=== PATIENT | male | born 1960 | race African-American/Black ===

== ENCOUNTER 2018-09-19 13:09 | Inpatient (IN) | payer OTHER ==
[2018-09-19 13:47] VITALS: BMI 28.8
[2018-09-19] MEDS ORDERED: ACETAMINOPHEN 325 MG TABLET (FP) PO PRN (17:50)
[2018-09-19] MEDS ORDERED: P-EPHED 60MG/TRIPROLIDI 2.5MG TABLET PO PRN (17:50)
[2018-09-19] MEDS ORDERED: MENTHOL/PHENOL 1 EACH UD MM PRN (17:50)
[2018-09-19] MEDS ORDERED: IBUPROFEN 400 MG TABLET (FP) PO PRN (17:50)
[2018-09-19] MEDS ORDERED: MAG HYDROX/AL HYDROX/SIMETH 30 ML UNIT-DOSE CUP PO PRN (17:50)
[2018-09-19] MEDS ORDERED: MAGNESIUM HYDROX 2400MG/30ML ORAL SUSPENSION 30 ML CUP PO PRN (17:50)
[2018-09-19] MEDS ORDERED: LOPERAMIDE HCL 2 MG CAPSULE PO PRN (17:50)
[2018-09-19] MEDS ORDERED: guaiFENesin/D-METHORPHAN HB 10 ML UNIT-DOSE CUPS PO PRN (17:50)
[2018-09-19] MEDS ORDERED: MAGNESIUM CITRATE 300 ML BOTTLE PO PRN (17:50)
--- NOTE | 2018-09-19 17:50 | HP ---
CIWA Score - Admission Criteria [facility]ASAS Guidelines: Admission for Medically Managed Detox: Requires at least one of the followin. CIWA greater than 12 2. Seizures within the past 24 hours 3. Delirium tremens within the past 24 hours 4. Hallucinations within the past 24 hours 5. Acute intervention needed for co occurring medical disorder 6. Acute intervention needed for co occurring psychiatric disorder 7. Severe withdrawal that cannot be handled at a lower level of care (continued vomiting, continued diarrhea, abnormal vital signs) requiring intravenous medication and/or fluids 8. Admission ROS S - HPI Chief Complaint: "I'm here for rehab" from cocaine use. Pt states he went to [facility] 2 days ago for depression- given celexa- says he feels better now. Left [facility] today and was brought here directly. Says was using cocaine smokes $50/ day and occ alcohol use 1 pint a week. Pt states has never had withdrawal Sx, no seizures and no DT's. "I don't drink like that". Meds: Celexa 40mg/day, Zyprexa 10mg qhs, and Genvoya 1 tablet a day. U tox: pos for cocaine DUR/ISTOP: neg for meds Allergies/Adverse Reactions: Allergies Allergy/AdvReac Type Severity Reaction Status Date / Time Penicillins Allergy Intermediate unknown Verified 09/19/18 16:49 - Ebola screening Have you been sick,other than usual withdrawal symptoms: No Patient History - Patient Medical History Hx Anemia: No Hx Asthma: No Hx Chronic Obstructive Pulmonary Disease (COPD): No Hx Cancer: No Hx Cardiac Disorders: No Hx Congestive Heart Failure: No Hx Hypertension: No Hx Hypercholesterolemia: No Hx Pacemaker: No HX Cerebrovascular Accident: No Hx Seizures: No Hx Dementia: No Hx Diabetes: No Hx Gastrointestinal Disorders: No Hx Liver Disease: No Hx Genitourinary Disorders: No Hx Sexually Transmitted Disorders: No Hx Renal Disease (ESRD): No Hx Thyroid Disease: No Hx Human Immunodeficiency Virus (HIV): Yes (since 2000) Hx Hepatitis C: No Hx Depression: Yes Hx Suicide Attempt: No Hx Bipolar Disorder: Yes Hx Schizophrenia: No - Patient Surgical History Past Surgical History: No Hx Neurologic Surgery: No Hx Cataract Extraction: No Hx Cardiac Surgery: No Hx Lung Surgery: No Hx Breast Surgery: No Hx Breast Biopsy: No Hx Abdominal Surgery: No Hx Appendectomy: No Hx Cholecystectomy: No Hx Genitourinary Surgery: No Hx Section: No Hx Orthopedic Surgery: No Anesthesia Reaction: No - PPD History Previous Implant?: Yes Documented Results: Negative w/proof Implanted On Prior R Admission?: Yes Date: 03/19/14 - Smoking Cessation Smoking history: Current every day smoker Have you smoked in the past 12 months: Yes Aproximately how many cigarettes per day: 5 Cigars Per Day: 0 Hx Chewing Tobacco Use: No Initiated information on smoking cessation: Yes 'Breaking Loose' booklet given: 09/19/18 - Substances Abused Cocaine Route: Smoking Frequency: Daily Amount used: $50-60 Age of first use: 29 Date of Last Use: 09/19/18 Alcohol-vodka Route: Oral Frequency: 1-2 times per week Amount used: 1 pt Age of first use: 16 Date of Last Use: 09/16/18 Family Disease History - Family Disease History Family Disease History: CA: Mother (,lung cancer), Other: Father ( alcohol,), Mother, Brother (alcohol) Admission Physical Exam S - Vital Signs Vital Signs: Vital Signs - 24 hr 09/19/18 13:45 Temperature 98.0 F Pulse Rate 74 Respiratory 18 Rate Blood Pressure 115/73 - Physical General Appearance: Yes: Within Normal Limits, Nourished HEENTM: Yes: Within Normal Limits, EOMI, Hearing grossly Normal, [place] Respiratory: Yes: Within Normal Limits Neck: Yes: Within Normal Limits Breast: Yes: Within Normal Limits Cardiology: Yes: Within Normal Limits Abdominal: Yes: Within Normal Limits, Protuberent Genitourinary: Yes: Within Normal Limits Back: Yes: Within Normal Limits Musculoskeletal: Yes: Within Normal Limits Extremities: Yes: Within Normal Limits (dry skin of feet) Neurological: Yes: Within Normal Limits, zmt operator II-XII NML intact Integumentary: Yes: Within Normal Limits Lymphatic: Yes: Within Normal Limits BHS Breath Alcohol Content Breath Alcohol Content: 0 Urine Drug Screen - Results Drug Screen Negative: No Urine Drug Screen Results: BETHANY-Cocaine Inpatient Rehab Admission - Initial Determination Are CD services needed?: Yes Free of communicable disease: Yes Not in need of hospitalization: Yes - Rehab Admission Criteria Previous failed treatment: Yes Poor recovery environment: Yes Comorbidities: Yes Lacks judgement: No Patient is meeting Inpatient Rehab admission criteria:: Yes
[2018-09-19] MEDS ORDERED: TUBERCULIN PPD 5 TU/0.1ML VIAL ID ONE (20:48)
[2018-09-19] MEDS: THIAMINE HCL 100 MG TABLET (FP) PO SCH (21:38)
[2018-09-19] MEDS ORDERED: MELATONIN 5 MG TABLETS PO PRN (22:00)
[2018-09-20 03:05] LABS: URINE APPEARANCE CLEAR; URINE BILIRUBIN NEGATIVE (<2.0 mg/dL); URINE COLOR YELLOW; URINE GLUCOSE (UA) NEGATIVE (NEGATIVE); URINE KETONE NEGATIVE (NEGATIVE); URINE LEUK ESTERASE NEGATIVE (NEGATIVE); URINE NITRITE NEGATIVE (NEGATIVE); URINE PROTEIN NEGATIVE (NEGATIVE); URINE UROBILINOGEN NEGATIVE mg/dL (0.2-1.0)
--- NOTE | 2018-09-20 08:54 | HP ---
Psychiatrist Admission - Data Date of interview: 09/20/18 Admission source: [facility] Identifying data: Patient is a 57 year old single male, unemployed, domiciled, and is supported by [facility]. This is patient's first admission to reh at [facility]. Patient admitted to for alcohol and cocained dependence. Medical History: HIV Psychiatric History: Patient's first psychiatric contact was in the for depression in [facility]. He was diagnosed with Bipolar disorder. Patient reports an extensive psychiatric history which includes multiple psychiatric hospitalizations, most recently two weeks ago at [facility] after feeling depressed, endorsing auditory hallucinations , and having a suicide attempt via overdose. Patient is also known to [facility], [facility], [facility], and [facility]. Self reports current diagnosis of Bipolar disorder. Patient deneis current outpatient psychiatric care. He receives refills from varies emergency room in [facility]. States his Primary care physician is Dr. Amaya. He is currently prescribed celexa 40mg + Zyprexa 10mg. Patient has been tried on celexa, seroquel, wellbutrin, and trazodone in the past. Patient reports one suicide attempt via overdose last month which led to the psychiatric admission at [facility]. Patient reports h/o auditory hallunciations which intensify during drug use. He last heard voices 2 weeks ago which led to his overdose. At the moment, patient denies auditory and visual hallucinations. He denies thought or urges to hurt self or others. Physical/Sexual Abuse/Trauma History: denies. Vital Signs: Vital Signs - 24 hr 09/19/18 09/20/18 09/20/18 13:45 00:30 03:30 Temperature 98.0 F Pulse Rate 74 Respiratory 18 18 18 Rate Blood Pressure 115/73 09/20/18 06:53 Temperature 98.4 F Pulse Rate 82 Respiratory 18 Rate Blood Pressure 127/76 Allergies/Adverse Reactions: Allergies Allergy/AdvReac Type Severity Reaction Status Date / Time Penicillins Allergy Intermediate unknown Verified 09/19/18 16:49 Date of last physical exam: 09/19/18 Concur with the findings of this exam: Yes - Substance Abuse/Tx History Hx Alcohol Use: Yes (Alcohol- 1 pint weekly) Hx Substance Use: Yes (Cocaine- $50 weekly) Substance Use Type: Alcohol, Cocaine Hx Substance Use Treatment: Yes (First rehab program) Mental Status Exam - Mental Status Exam Alert and Oriented to: Time, Place, Person Cognitive Function: Good Patient Appearance: Well Groomed Mood: Hopeful Affect: Appropriate Patient Behavior: Appropriate, Cooperative Speech Pattern: Clear, Appropriate Thought Process: Intact, Goal Oriented Thought Disorder: Not Present Hallucinations: Denies Suicidal Ideation: Denies Homicidal Ideation: Denies Insight/Judgement: Poor Sleep: Fair Appetite: Fair Muscle strength/Tone: Normal Gait/Station: Normal Psychiatric Findings - Problem List ([place] 1, 2,3) (1) Schizoaffective disorder Current Visit: Yes Status: Chronic (2) Alcohol dependence Current Visit: Yes Status: Acute (3) Cocaine dependence Current Visit: Yes Status: Acute - Initial Treatment Plan Initial Treatment Plan: Psychoeducation provided. Detoxification. Will order Celexa 40mg + Zyprexa 10mg. Benefits and side effects discussed. Verbal consent given.
[2018-09-20] MEDS ORDERED: PATIENT'S OWN MEDICATION (NON-FORMULARY) (Efavirenz/Emtricitab/Tenofovir 1 TAB) PO SCH (10:00)
[2018-09-20] MEDS: EFAVIRENZ 600 MG TABLET PO SCH (11:18)
[2018-09-20] MEDS: EMTRICITABINE 200MG/TENOFOVIR 300MG PO SCH (11:19)
[2018-09-20] MEDS: CITALOPRAM HYDROBROMIDE 20 MG TABLET (FP) PO SCH (11:19)
[2018-09-20] MEDS: PRENATAL VITAMINS W/ FOLIC ACID TABLET (FP) PO SCH (11:21)
[2018-09-20 15:13] LABS: HEMATOCRIT 35.2 % (35.4-49); HEMOGLOBIN 12.1 GM/dL (11.7-16.9); MCH 27.4 pg (25.7-33.7); MCHC 34.4 g/dl (32.0-35.9); MEAN CELL VOLUME 79.6 fl (80-96); MEAN PLT VOLUME 8.2 fl (7.5-11.1); PLATELET COUNT 255 K/MM3 (134-434); RBC 4.42 M/mm3 (4.00-5.60); WHITE BLOOD COUNT 3.2 K/mm3 (4.0-10.0)
[2018-09-20 15:27] LABS: ALBUMIN 3.1 g/dl (3.4-5.0); ALK PHOS 130 U/L (45-117); ANION GAP 7 MMOL/L (8-16); BILIRUBIN,TOTAL 0.2 mg/dL (0.2-1); BLOOD UREA NITROGEN 16 mg/dL (7-18); CALCIUM 8.7 mg/dL (8.5-10.1); CHLORIDE 104 mmol/L (98-107); CO2 28 mmol/L (21-32); GLUCOSE,RANDOM 265 mg/dL (74-106); POTASSIUM 4.2 mmol/L (3.5-5.1); SGOT/AST 38 U/L (15-37); SGPT/ALT 42 U/L (13-61); SODIUM 139 mmol/L (136-145); TOT PROT 6.7 g/dl (6.4-8.2)
[2018-09-20] MEDS: THIAMINE HCL 100 MG TABLET (FP) PO SCH (21:41)
[2018-09-20] MEDS: OLANZapine 10 MG TABLET PO SCH (21:43)
[2018-09-21] MEDS: CITALOPRAM HYDROBROMIDE 20 MG TABLET (FP) PO SCH (10:33)
[2018-09-21] MEDS: PRENATAL VITAMINS W/ FOLIC ACID TABLET (FP) PO SCH (10:35)
[2018-09-21] MEDS: EMTRICITABINE 200MG/TENOFOVIR 300MG PO SCH (12:23)
[2018-09-21] MEDS: EFAVIRENZ 600 MG TABLET PO SCH (12:24)
--- NOTE | 2018-09-21 15:44 | EKG ---
Test Reason : Blood Pressure : / mmHG Vent. Rate : 070 BPM Atrial Rate : 070 BPM P-R Int : 174 ms QRS Dur : 112 ms QT Int : 404 ms P-R-T Axes : 064 031 021 degrees QTc Int : 436 ms NORMAL SINUS RHYTHM INCOMPLETE RIGHT BUNDLE BRANCH BLOCK BORDERLINE ECG NO PREVIOUS ECGS AVAILABLE Confirmed by SAMIR BROWNING, VIKI ([id number]) on 09/21/2018 3:44:26 PM Referred By: Confirmed By:VIKI DAWSON MD
[2018-09-21] MEDS: OLANZapine 10 MG TABLET PO SCH (21:33)
[2018-09-21] MEDS: THIAMINE HCL 100 MG TABLET (FP) PO SCH (21:33)
[2018-09-22] MEDS: PRENATAL VITAMINS W/ FOLIC ACID TABLET (FP) PO SCH (10:09)
[2018-09-22] MEDS: EMTRICITABINE 200MG/TENOFOVIR 300MG PO SCH (10:09)
[2018-09-22] MEDS: CITALOPRAM HYDROBROMIDE 20 MG TABLET (FP) PO SCH (10:09)
[2018-09-22] MEDS: EFAVIRENZ 600 MG TABLET PO SCH (10:09)
[2018-09-22] MEDS: THIAMINE HCL 100 MG TABLET (FP) PO SCH (21:42)
[2018-09-22] MEDS: OLANZapine 10 MG TABLET PO SCH (21:42)
[2018-09-23] MEDS: EMTRICITABINE 200MG/TENOFOVIR 300MG PO SCH (10:07)
[2018-09-23] MEDS: CITALOPRAM HYDROBROMIDE 20 MG TABLET (FP) PO SCH (10:07)
[2018-09-23] MEDS: EFAVIRENZ 600 MG TABLET PO SCH (10:07)
[2018-09-23] MEDS: PRENATAL VITAMINS W/ FOLIC ACID TABLET (FP) PO SCH (10:07)
[2018-09-23] MEDS: OLANZapine 10 MG TABLET PO SCH (21:45)
[2018-09-23] MEDS: THIAMINE HCL 100 MG TABLET (FP) PO SCH (21:46)
[2018-09-24] MEDS: EFAVIRENZ 600 MG TABLET PO SCH (10:28)
[2018-09-24] MEDS: CITALOPRAM HYDROBROMIDE 20 MG TABLET (FP) PO SCH (10:28)
[2018-09-24] MEDS: PRENATAL VITAMINS W/ FOLIC ACID TABLET (FP) PO SCH (10:28)
[2018-09-24] MEDS: EMTRICITABINE 200MG/TENOFOVIR 300MG PO SCH (10:30)
[2018-09-24] MEDS: OLANZapine 10 MG TABLET PO SCH (21:33)
[2018-09-24] MEDS: THIAMINE HCL 100 MG TABLET (FP) PO SCH (21:33)
[2018-09-25] MEDS: PRENATAL VITAMINS W/ FOLIC ACID TABLET (FP) PO SCH (10:00)
[2018-09-25] MEDS: CITALOPRAM HYDROBROMIDE 20 MG TABLET (FP) PO SCH (10:00)
[2018-09-25] MEDS: EMTRICITABINE 200MG/TENOFOVIR 300MG PO SCH (10:00)
[2018-09-25] MEDS: EFAVIRENZ 600 MG TABLET PO SCH (10:01)
[2018-09-25] MEDS: OLANZapine 10 MG TABLET PO SCH (21:05)
[2018-09-25] MEDS: THIAMINE HCL 100 MG TABLET (FP) PO SCH (21:05)
[2018-09-26] MEDS: EFAVIRENZ 600 MG TABLET PO SCH (10:32)
[2018-09-26] MEDS: CITALOPRAM HYDROBROMIDE 20 MG TABLET (FP) PO SCH (10:32)
[2018-09-26] MEDS: EMTRICITABINE 200MG/TENOFOVIR 300MG PO SCH (10:32)
[2018-09-26] MEDS: PRENATAL VITAMINS W/ FOLIC ACID TABLET (FP) PO SCH (10:32)
[2018-09-26] MEDS: OLANZapine 10 MG TABLET PO SCH (21:33)
[2018-09-26] MEDS: THIAMINE HCL 100 MG TABLET (FP) PO SCH (21:33)
--- NOTE | 2018-09-26 23:09 | PN ---
[facility] Progress Note Note: Psychiatric nurse practitioner note: Call received by RN stating patient is leaving tonight. [employer] Headlight [employer]sembler able to speak to patient on the phone. Patient stated, " I need to go tonight. You guys can't hold me here. I'm leaving." Patient signed out of rehab.
[2018-09-26 23:10] VITALS: BP 168/89; PULSE 91; TEMP 98.4
== END 2018-09-26 23:20 | disposition left against medical advice (07) | DRG 770 ==
LOC: YASAS 13:09 → Y5N 18:23
PROVIDERS: ADMIT Psychiatry & Neurology Psychiatry; ATTEND Psychiatry & Neurology Psychiatry
PROC: HZ42ZZZ Group Counseling for Substance Abuse Treatment, Cognitive-Behavioral (ICD-10-PCS; principal; 2018-09-19)
DX: F10.20 Alcohol dependence, uncomplicated (principal); F14.20 Cocaine dependence, uncomplicated; F25.9 Schizoaffective disorder, unspecified; B20 Human immunodeficiency virus [HIV] disease; Z91.5 Personal history of self-harm
CPT/HCPCS: 36415; 80053; 81003; 82962; 85027; 86593; 93005; 93010

== ENCOUNTER 2023-12-07 10:06 | Inpatient (IN) | payer OTHER ==
[2023-12-07 10:42] VITALS: BMI 26.9
[2023-12-07] MEDS ORDERED: MAG HYDROX/AL HYDROX/SIMETH 30 ML UNIT-DOSE CUP PO PRN (12:57)
[2023-12-07] MEDS ORDERED: NICOTINE POLACRILEX 2 MG GUM BUC PRN (12:57)
[2023-12-07] MEDS ORDERED: guaiFENesin 600 MG TABLET.ER (FP) PO PRN (12:57)
[2023-12-07] MEDS ORDERED: ONDANSETRON *ODT* 4 MG TABLET SL PRN (12:57)
[2023-12-07] MEDS ORDERED: BENZOCAINE/MENTHOL (CHLORASEPTIC ) LOZENGE MM PRN (12:57)
[2023-12-07] MEDS ORDERED: POLYETHYLENE GLYCOL (HEALTHYLAX) 3350 17 GM PACKET PO PRN (12:57)
[2023-12-07] MEDS ORDERED: BISMUTH SUBSALICYLATE 262 MG/15 ML BTL PO PRN (12:57)
[2023-12-07] MEDS ORDERED: BENZONATATE 200 MG CAPSULE PO PRN (12:57)
[2023-12-07] MEDS ORDERED: DICYCLOMINE HCL 10 MG CAPSULE PO PRN (12:57)
[2023-12-07] MEDS ORDERED: MAGNESIUM HYDROX 2400MG/30ML ORAL SUSPENSION 30 ML CUP PO PRN (12:57)
[2023-12-07] MEDS ORDERED: IBUPROFEN 600 MG TABLET (FP) PO PRN (12:57)
[2023-12-07] MEDS ORDERED: IBUPROFEN 400 MG TABLET (FP) PO PRN (12:57)
[2023-12-07] MEDS ORDERED: NALOXONE HCL (KLOXXADO) 8 MG SPRAY NS PRN (12:57)
[2023-12-07] MEDS ORDERED: ACETAMINOPHEN 325 MG TABLET (FP) PO PRN (12:57)
[2023-12-07] MEDS ORDERED: NALOXONE HCL 0.4 MG/ML VIAL IM PRN (12:57)
[2023-12-07] MEDS ORDERED: LOPERAMIDE HCL 2 MG CAPSULE PO PRN (12:57)
[2023-12-07] MEDS ORDERED: PRENATAL VITAMINS W/ FOLIC ACID TABLET (FP) PO ONE (13:24)
[2023-12-07] MEDS: PRENATAL VITAMINS W/ FOLIC ACID TABLET (FP) PO SCH (13:26)
[2023-12-07] MEDS: metFORMIN HCL 500 MG TABLET (FP) PO SCH (17:33)
[2023-12-07] MEDS: MELATONIN 5 MG TABLETS PO SCH (22:40)
[2023-12-07] MEDS: THIAMINE HCL 100 MG TABLET (FP) PO SCH (22:40)
[2023-12-08] MEDS: BICTEGRAV/EMTRICIT/TENOFOV (BIKTARVY) 50-200-25 MG TABLET PO SCH (07:16)
[2023-12-08] MEDS: hydrOXYzine PAMOATE 25 MG CAPSULE (FP) PO PRN (07:24)
[2023-12-08] MEDS: METHOCARBAMOL 500 MG TABLET PO PRN (07:24)
[2023-12-08] MEDS ORDERED: chlordiazePOXIDE HCL 25 MG CAPSULE PO PRN (09:52)
[2023-12-08] MEDS: chlordiazePOXIDE HCL 25 MG CAPSULE PO SCH (11:45)
[2023-12-08 12:11] LABS: HEMATOCRIT 39.9 % (35.4-49); HEMOGLOBIN 13.3 GM/dL (11.7-16.9); MCH 27.3 pg (25.7-33.7); MCHC 33.2 g/dl (32.0-35.9); MEAN CELL VOLUME 82.3 fl (80-96); MEAN PLT VOLUME 8.3 fl (7.5-11.1); PLATELET COUNT 271 10^3/uL (134-434); RBC 4.85 M/mm3 (4.00-5.60); RDW 15.2 % (11.9-15.9); WHITE BLOOD COUNT 3.3 K/mm3 (4.0-10.0)
[2023-12-08 13:03] LABS: CHLORIDE 107 mmol/L (98-107); POTASSIUM 4.1 mmol/L (3.5-5.1); SODIUM 139 mmol/L (136-145)
[2023-12-08 13:05] LABS: ALBUMIN 3.1 g/dl (3.4-5.0); ANION GAP 4 mmol/L (4-13); BLOOD UREA NITROGEN 13.1 mg/dL (7-18); CALCIUM 9.4 mg/dL (8.5-10.1); CO2 29 mmol/L (21-32); GLUCOSE,RANDOM 149 mg/dL (74-106)
[2023-12-08 13:08] LABS: CREATININE 1.1 mg/dL (0.55-1.3); SGPT/ALT 33 U/L (13-61)
[2023-12-08 13:09] LABS: SGOT/AST 31 U/L (15-37)
[2023-12-08 13:10] LABS: BILIRUBIN,TOTAL 0.3 mg/dL (0.2-1); TOT PROT 7.3 g/dl (6.4-8.2)
[2023-12-08 13:11] LABS: ALK PHOS 110 U/L (45-117)
[2023-12-08] MEDS: METOPROLOL TARTRATE 25 MG TABLET (FP) PO ONE (17:25)
[2023-12-09] MEDS: cloNIDine HCL 0.1 MG TABLET PO PRN (17:38)
[2023-12-10] MEDS: chlordiazePOXIDE HCL 25 MG CAPSULE PO SCH (06:15)
[2023-12-10] MEDS ORDERED: diazePAM 5 MG TABLET PO PRN ×2 (14:31→14:41)
[2023-12-10] MEDS: diazePAM 5 MG TABLET PO SCH (17:33)
[2023-12-11] MEDS ORDERED: chlordiazePOXIDE HCL 10 MG CAPSULE PO PRN
[2023-12-11] MEDS ORDERED: chlordiazePOXIDE HCL 10 MG CAPSULE PO SCH (05:00)
[2023-12-11] MEDS: diazePAM 5 MG TABLET PO SCH (06:14)
[2023-12-12] MEDS ORDERED: chlordiazePOXIDE HCL 10 MG CAPSULE PO SCH (05:00)
[2023-12-12] MEDS: diazePAM 5 MG TABLET PO SCH (05:40)
[2023-12-13] MEDS ORDERED: chlordiazePOXIDE HCL 10 MG CAPSULE PO ONE (05:00)
[2023-12-13] MEDS: diazePAM 5 MG TABLET PO ONE (06:14)
[2023-12-13 09:09] VITALS: BP 124/70; PULSE 86; RESP 20; TEMP 98.7
== END 2023-12-13 09:12 | disposition home or self-care (01) | DRG 774 ==
LOC: YASAS 10:06 → Y3N 13:04
PROVIDERS: ADMIT Allergy & Immunology; ATTEND Surgery
PROC: HZ2ZZZZ Detoxification Services for Substance Abuse Treatment (ICD-10-PCS; principal; 2023-12-07)
DX: F10.230 Alcohol dependence with withdrawal, uncomplicated (principal); F14.10 Cocaine abuse, uncomplicated; F17.210 Nicotine dependence, cigarettes, uncomplicated; B20 Human immunodeficiency virus [HIV] disease; E11.65 Type 2 diabetes mellitus with hyperglycemia; Z79.84 Long term (current) use of oral hypoglycemic drugs; Z79.899 Other long term (current) drug therapy; Z86.59 Personal history of other mental and behavioral disorders; Z86.19 Personal history of other infectious and parasitic diseases; Z88.0 Allergy status to penicillin
CPT/HCPCS: 36415; 80053; 80307; 82962; 85027; 86593; 86780; 87635; 87811; 93005; 93010

== ENCOUNTER 2024-02-04 09:16 | Inpatient (IN) | payer OTHER ==
[2024-02-04 09:51] VITALS: BMI 27.9
[2024-02-04] MEDS ORDERED: IBUPROFEN 600 MG TABLET (FP) PO PRN (10:15)
[2024-02-04] MEDS ORDERED: LOPERAMIDE HCL 2 MG CAPSULE PO PRN (10:15)
[2024-02-04] MEDS ORDERED: DICYCLOMINE HCL 10 MG CAPSULE PO PRN (10:15)
[2024-02-04] MEDS ORDERED: METHOCARBAMOL 500 MG TABLET PO PRN (10:15)
[2024-02-04] MEDS ORDERED: MAGNESIUM HYDROX 2400MG/30ML ORAL SUSPENSION 30 ML CUP PO PRN (10:15)
[2024-02-04] MEDS ORDERED: POLYETHYLENE GLYCOL (HEALTHYLAX) 3350 17 GM PACKET PO PRN (10:15)
[2024-02-04] MEDS ORDERED: IBUPROFEN 400 MG TABLET (FP) PO PRN (10:15)
[2024-02-04] MEDS ORDERED: ACETAMINOPHEN 325 MG TABLET (FP) PO PRN (10:15)
[2024-02-04] MEDS ORDERED: NICOTINE POLACRILEX 2 MG GUM BUC PRN (10:15)
[2024-02-04] MEDS ORDERED: NALOXONE HCL 0.4 MG/ML VIAL IM PRN (10:15)
[2024-02-04] MEDS ORDERED: guaiFENesin 600 MG TABLET.ER (FP) PO PRN (10:15)
[2024-02-04] MEDS ORDERED: hydrOXYzine PAMOATE 25 MG CAPSULE (FP) PO PRN (10:15)
[2024-02-04] MEDS ORDERED: ONDANSETRON *ODT* 4 MG TABLET SL PRN (10:15)
[2024-02-04] MEDS ORDERED: BENZONATATE 200 MG CAPSULE PO PRN (10:15)
[2024-02-04] MEDS ORDERED: NALOXONE HCL (KLOXXADO) 8 MG SPRAY NS PRN (10:15)
[2024-02-04] MEDS ORDERED: LORazepam 1 MG TABLET PO PRN (10:15)
[2024-02-04] MEDS ORDERED: BISMUTH SUBSALICYLATE 524 MG/30 ML PO PRN (10:15)
[2024-02-04] MEDS ORDERED: MAG HYDROX/AL HYDROX/SIMETH 30 ML UNIT-DOSE CUP PO PRN (10:15)
[2024-02-04] MEDS ORDERED: BENZOCAINE/MENTHOL (CHLORASEPTIC ) LOZENGE MM PRN (10:15)
[2024-02-04] MEDS: INSULIN ASPART SLIDING SCALE (NOVOLOG) 1 VIAL SQ SCH (11:09)
[2024-02-04] MEDS: LORazepam 2 MG TABLET PO SCH (11:15)
[2024-02-04] MEDS: PRENATAL VITAMINS W/ FOLIC ACID TABLET (FP) PO SCH (11:16)
[2024-02-04] MEDS ORDERED: LORazepam 2 MG TABLET ONE (11:21)
[2024-02-04] MEDS ORDERED: PRENATAL VITAMINS W/ FOLIC ACID TABLET (FP) PO ONE (11:22)
[2024-02-04] MEDS: metFORMIN HCL 500 MG TABLET (FP) PO SCH (12:10)
[2024-02-04] MEDS: MELATONIN 5 MG TABLETS PO SCH (21:52)
[2024-02-04] MEDS: THIAMINE HCL 100 MG TABLET (FP) PO SCH (21:53)
[2024-02-05] MEDS: BICTEGRAV/EMTRICIT/TENOFOV (BIKTARVY) 50-200-25 MG TABLET PO SCH (10:53)
[2024-02-05 15:29] LABS: POTASSIUM 4.4 mmol/L (3.5-5.1)
[2024-02-05 15:33] LABS: CALCIUM 8.8 mg/dL (8.5-10.1)
[2024-02-05 15:34] LABS: ALBUMIN 3.1 g/dl (3.4-5.0)
[2024-02-05 15:37] LABS: CREATININE 0.9 mg/dL (0.55-1.3)
[2024-02-05 15:38] LABS: BILIRUBIN,TOTAL 0.2 mg/dL (0.2-1); TOT PROT 7.1 g/dl (6.4-8.2)
[2024-02-05 15:42] LABS: HEMATOCRIT 40.4 % (35.4-49); HEMOGLOBIN 13.3 GM/dL (11.7-16.9); MCH 27.3 pg (25.7-33.7); MCHC 32.9 g/dl (32.0-35.9); MEAN CELL VOLUME 83.1 fl (80-96); MEAN PLT VOLUME 8.5 fl (7.5-11.1); PLATELET COUNT 179 10^3/uL (134-434); RBC 4.87 M/mm3 (4.00-5.60); RDW 14.5 % (11.9-15.9)
[2024-02-05 15:57] LABS: WHITE BLOOD COUNT 1.9 K/mm3 (4.0-10.0)
[2024-02-05] MEDS: LACTULOSE 20 GM/30 ML UDC (FOR ORAL USE ONLY) PO SCH (22:25)
[2024-02-06] MEDS: LORazepam 1 MG TABLET PO SCH (06:10)
[2024-02-07] MEDS ORDERED: LORazepam 0.5 MG TABLET PO PRN
[2024-02-07] MEDS: LORazepam 0.5 MG TABLET PO SCH (05:58)
[2024-02-08] MEDS: LORazepam 0.5 MG TABLET PO ONE (06:12)
[2024-02-08 09:25] VITALS: BP 139/82; PULSE 80; RESP 18; TEMP 96.9
== END 2024-02-08 09:30 | disposition home or self-care (01) | DRG 774 ==
LOC: YASAS 09:16 → Y6N 11:39
PROVIDERS: ADMIT Allergy & Immunology; ATTEND Surgery
PROC: HZ2ZZZZ Detoxification Services for Substance Abuse Treatment (ICD-10-PCS; principal; 2024-02-04)
DX: F10.230 Alcohol dependence with withdrawal, uncomplicated (principal); F14.20 Cocaine dependence, uncomplicated; F17.210 Nicotine dependence, cigarettes, uncomplicated; F25.9 Schizoaffective disorder, unspecified; B20 Human immunodeficiency virus [HIV] disease; D72.819 Decreased white blood cell count, unspecified; E72.20 Disorder of urea cycle metabolism, unspecified; E11.9 Type 2 diabetes mellitus without complications; Z79.84 Long term (current) use of oral hypoglycemic drugs; R63.4 Abnormal weight loss; Z68.28 Body mass index [BMI] 28.0-28.9, adult; R76.8 Other specified abnormal immunological findings in serum; Z86.19 Personal history of other infectious and parasitic diseases; Z88.0 Allergy status to penicillin
CPT/HCPCS: 36415; 80053; 80305; 80307; 82140; 82962; 83036; 85027; 86593; 86780

== ENCOUNTER 2024-03-15 11:01 | Inpatient (IN) | payer OTHER ==
[2024-03-15 13:15] VITALS: BMI 28.7
[2024-03-15] MEDS ORDERED: MAG HYDROX/AL HYDROX/SIMETH 30 ML UNIT-DOSE CUP PO PRN (13:38)
[2024-03-15] MEDS ORDERED: BISMUTH SUBSALICYLATE 262 MG/15 ML BTL PO PRN (13:38)
[2024-03-15] MEDS ORDERED: LOPERAMIDE HCL 2 MG CAPSULE PO PRN (13:38)
[2024-03-15] MEDS ORDERED: ONDANSETRON *ODT* 4 MG TABLET SL PRN (13:38)
[2024-03-15] MEDS ORDERED: IBUPROFEN 600 MG TABLET (FP) PO PRN (13:38)
[2024-03-15] MEDS ORDERED: DICYCLOMINE HCL 10 MG CAPSULE PO PRN (13:38)
[2024-03-15] MEDS ORDERED: NALOXONE HCL 0.4 MG/ML VIAL IM PRN (13:38)
[2024-03-15] MEDS ORDERED: MAGNESIUM HYDROX 2400MG/30ML ORAL SUSPENSION 30 ML CUP PO PRN (13:38)
[2024-03-15] MEDS ORDERED: LORazepam 1 MG TABLET PO PRN (13:38)
[2024-03-15] MEDS ORDERED: ACETAMINOPHEN 325 MG TABLET (FP) PO PRN (13:38)
[2024-03-15] MEDS ORDERED: BENZONATATE 200 MG CAPSULE PO PRN (13:38)
[2024-03-15] MEDS ORDERED: NALOXONE HCL (KLOXXADO) 8 MG SPRAY NS PRN (13:38)
[2024-03-15] MEDS ORDERED: POLYETHYLENE GLYCOL (HEALTHYLAX) 3350 17 GM PACKET PO PRN (13:38)
[2024-03-15] MEDS ORDERED: guaiFENesin 600 MG TABLET.ER (FP) PO PRN (13:38)
[2024-03-15] MEDS ORDERED: IBUPROFEN 400 MG TABLET (FP) PO PRN (13:38)
[2024-03-15] MEDS ORDERED: hydrOXYzine PAMOATE 25 MG CAPSULE (FP) PO PRN (13:38)
[2024-03-15] MEDS: LORazepam 2 MG TABLET PO SCH (17:42)
[2024-03-15] MEDS: metFORMIN HCL 500 MG TABLET (FP) PO SCH (17:42)
[2024-03-15] MEDS: MELATONIN 5 MG TABLETS PO SCH (22:43)
[2024-03-15] MEDS: THIAMINE 100 MG TABLET PO SCH (22:43)
[2024-03-16] MEDS: BICTEGRAV/EMTRICIT/TENOFOV (BIKTARVY) 50-200-25 MG TABLET PO SCH (07:29)
[2024-03-16] MEDS: PRENATAL VITAMINS W/ FOLIC ACID TABLET (FP) PO SCH (09:54)
[2024-03-16 13:44] LABS: HEMATOCRIT 38.1 % (35.4-49); HEMOGLOBIN 12.9 GM/dL (11.7-16.9); MCH 27.5 pg (25.7-33.7); MCHC 33.7 g/dl (32.0-35.9); MEAN CELL VOLUME 81.5 fl (80-96); MEAN PLT VOLUME 8.5 fl (7.5-11.1); PLATELET COUNT 205 10^3/uL (134-434); RBC 4.68 M/mm3 (4.00-5.60); RDW 14.4 % (11.9-15.9); WHITE BLOOD COUNT 2.9 K/mm3 (4.0-10.0)
[2024-03-16 13:45] LABS: POTASSIUM 4.2 mmol/L (3.5-5.1)
[2024-03-16 13:51] LABS: ALBUMIN 3.2 g/dl (3.4-5.0); BLOOD UREA NITROGEN 15.3 mg/dL (7-18); CALCIUM 8.8 mg/dL (8.5-10.1)
[2024-03-16 13:56] LABS: BILIRUBIN,TOTAL 0.3 mg/dL (0.2-1); TOT PROT 7.1 g/dl (6.4-8.2)
[2024-03-17] MEDS: LORazepam 1 MG TABLET PO SCH (05:18)
[2024-03-17] MEDS: amLODIPine BESYLATE 5 MG TABLET (FP) PO SCH (11:56)
[2024-03-18] MEDS ORDERED: LORazepam 0.5 MG TABLET PO PRN
[2024-03-18] MEDS: LORazepam 0.5 MG TABLET PO SCH (05:19)
[2024-03-18] MEDS: METHOCARBAMOL 500 MG TABLET PO PRN (10:14)
[2024-03-18 14:43] LABS: HEMATOCRIT 38.7 % (35.4-49); HEMOGLOBIN 12.9 GM/dL (11.7-16.9); MCH 27.2 pg (25.7-33.7); MCHC 33.3 g/dl (32.0-35.9); MEAN CELL VOLUME 81.7 fl (80-96); MEAN PLT VOLUME 8.2 fl (7.5-11.1); PLATELET COUNT 251 10^3/uL (134-434); RBC 4.73 M/mm3 (4.00-5.60); RDW 14.1 % (11.9-15.9); WHITE BLOOD COUNT 2.9 K/mm3 (4.0-10.0)
[2024-03-18 15:28] LABS: ANISOCYTOSIS 0; MACROCYTOSIS 0
[2024-03-18 15:29] LABS: PLATELET ESTIMATE ADEQUATE
[2024-03-18] MEDS: BENZOCAINE/MENTHOL (CHLORASEPTIC ) LOZENGE MM PRN (22:24)
[2024-03-19] MEDS: LORazepam 0.5 MG TABLET PO ONE (05:45)
[2024-03-19 06:56] VITALS: RESP 16
[2024-03-19 09:11] VITALS: BP 147/80; PULSE 91; TEMP 97.6
== END 2024-03-19 09:30 | disposition home or self-care (01) | DRG 774 ==
LOC: YASAS 11:01 → Y6N 13:49
PROVIDERS: ADMIT Allergy & Immunology; ATTEND Surgery
PROC: HZ2ZZZZ Detoxification Services for Substance Abuse Treatment (ICD-10-PCS; principal; 2024-03-15)
DX: F10.230 Alcohol dependence with withdrawal, uncomplicated (principal); F14.20 Cocaine dependence, uncomplicated; F17.210 Nicotine dependence, cigarettes, uncomplicated; F25.9 Schizoaffective disorder, unspecified; D70.9 Neutropenia, unspecified; B20 Human immunodeficiency virus [HIV] disease; Z79.899 Other long term (current) drug therapy; E11.9 Type 2 diabetes mellitus without complications; Z79.84 Long term (current) use of oral hypoglycemic drugs; Z88.0 Allergy status to penicillin
CPT/HCPCS: 36415; 80053; 80305; 82140; 82962; 85025; 85027; 86593; 86780; 93005; 93010